=== PATIENT | male | born 1955 | race Two or more races ===

== ENCOUNTER 2023-09-01 17:27 | Emergency (ER) | payer BC ==
[~2023-09-01] VITALS: Ht 167.6 cm; Wt 83.1 kg
[2023-09-01 18:15] VITALS: BP 149/87; PULSE 80; RESP 19; O2SAT 99
== END 2023-09-01 18:57 | disposition home or self-care (01) ==
LOC: ER 17:27
DX: Z00.00 Encounter for general adult medical examination without abnormal findings (principal)